=== PATIENT | female | born 1980 | race American Indian/Alaskan Native ===

== ENCOUNTER 2016-07-05 13:52 | Emergency (ER) | payer OTHER ==
[2016-07-05 14:39] LABS: Basophils % (Auto) 0.6 % (0.0-1.8); Eosinophils % (Auto) 0.5 % (0.0-4.3); Hematocrit 38.8 % (30.3-42.9); Hemoglobin 13.1 gm/dl (10.1-14.3); Mean Corpuscular HGB Conc 34 % (30-34); Mean Corpuscular Hemoglobin 32 pg (28-32); Mean Corpuscular Volume 94 fl (79-97); Platelet Count 357 K/mm3 (140-440); Red Blood Count 4.11 M/mm3 (3.65-5.03); Red Cell Distribution Width 12.8 % (13.2-15.2)
[2016-07-05 14:53] LABS: Alanine Aminotransferase 8 units/L (7-56); Albumin 4.4 g/dL (3.9-5); Alkaline Phosphatase 71 units/L (35-129); Chloride 98.9 mmol/L (98-107); Glucose 104 mg/dL (65-100); Potassium 3.7 mmol/L (3.6-5.0); Sodium 138 mmol/L (137-145)
[2016-07-05 15:01] LABS: Albumin/Globulin Ratio 1.4 %; Anion Gap 20 mmol/L; BUN/Creatinine Ratio 18.33; Blood Urea Nitrogen 11 mg/dL (7-17); Calcium 9.5 mg/dL (8.4-10.2); Carbon Dioxide 23 mmol/L (22-30); Lipase 22 units/L (13-60); Total Protein 7.5 g/dL (6.3-8.2)
[2016-07-05 15:56] LABS: Bilirubin,Urine NEG (Negative); Blood,Urine LG (Negative); Ketones,Urine NEG (Negative); Leukocyte Esterase,Urine SM (Negative); Mucus,Urine FEW /HPF; Nitrite,Urine NEG (Negative); Protein,Urine <15 mg/dL mg/dL (Negative); Urobilinogen,Urine < 2.0 mg/dL (<2.0)
--- NOTE | 2016-07-05 23:42 | Ultrasound Report ---
FINAL REPORT PROCEDURE: US TRANSVAGINAL TECHNIQUE: Real-time transvaginal sonography in multiple planes of the pelvis was performed with image documentation. This examination was performed without Doppler. Vascular abnormalities, including ovarian torsion, will not be detectable without Doppler evaluation. CPT 82307 HISTORY: pelvic pain and bleeding COMPARISON: No prior studies are available for comparison. FINDINGS: The pelvic contents including uterus are not well delineated. There appears to be a large mass located in the left adnexal region measuring 7.6 x 3.9 x 5.6 centimeters. There is a mixed echoic mass in the central pelvis measuring 3 centimeters x 2.4 centimeters x 3.4 centimeters containing septations. IMPRESSION: Uterus and ovaries are not clearly delineated. There appear to be ill-defined mass lesions in the central pelvis and left adnexal region. CT or MRI are recommended for further evaluation.
--- NOTE | 2016-07-06 00:27 | Ultrasound Report ---
FINAL REPORT PROCEDURE: US PELVIC COMPLETE TECHNIQUE: Real-time transabdominal sonography in multiple planes of pelvis was performed with image documentation. This examination was performed without Doppler. Vascular abnormalities, including ovarian torsion, will not be detectable without Doppler evaluation. CPT 53478 HISTORY: pelvic pain and bleeding COMPARISON: No prior studies are available for comparison. FINDINGS: Pelvic contents are not well visualized on this study. There is a large mass identified in the lower left pelvis this is most likely a left adnexal masses measures up to 7.6 centimeters. This has mixed echogenicity. There is a septated cystic region in the central pelvis that measures 3 x 2.4 x 3.4 centimeters. Advanced cross-sectional imaging should be entertained for further differentiation of the pelvic structures. IMPRESSION: Poor visualization of the pelvic structures on this study. A large mass in the left pelvis which may represent ovarian mass or adnexal mass measures up to 7.6 centimeters. 2nd septated cystic region in the mid lower pelvis measures up to 3.4 centimeters. Further differentiation with advanced cross-sectional imaging utilizing CT or MRI would be of benefit.
--- NOTE | 2016-07-06 04:55 | Emergency Department Report ---
<SHERRILL DOWLING IKuldip - Last Filed: 07/06/16 05:49> ED Abdominal Pain HPI - General Chief Complaint: Abdominal Pain Stated Complaint: PAIN LOWER STOMACH/EMESIS/BLEEDING Time Seen by Provider: 07/06/16 04:44 Source: patient Mode of arrival: Ambulatory Limitations: No Limitations - History of Present Illness Initial Comments: Patient is a 35-year-old female with a h/o DM presenting with left lower quadrant pelvic pain for the last 3 days. Patient reports she awoke Sunday morning with some pelvic pain, sharp and constant in nature with radiation across her lower back. Patient then reports she started having vaginal bleeding the following day. She reports this is unusual because the patient had a right oophorectomy and partial hysterectomy 14 years ago and has not had a period in 14 years. Patient try Tylenol [id number] with minor relief. Otherwise no fevers, chills, nausea, vomiting, diarrhea, chest pain, shortness of breath, trauma, recent surgery, travel, or sick contacts. - Related Data Previous Rx's Medication Instructions Recorded Last Taken Type Doxycycline [Vibramycin CAP] 100 mg PO Q12HR #20 capsule 07/06/16 Unknown Rx HYDROcodone/APAP 5-325 [[place] 1 each PO Q4HR PRN #14 tablet 07/06/16 Unknown Rx 5/325] Allergies Allergy/AdvReac Type Severity Reaction Status Date / Time No Known Allergies Allergy Verified 04/21/15 16:44 ED Review of Systems ROS: Stated complaint: PAIN LOWER STOMACH/EMESIS/BLEEDING Other details as noted in HPI Comment: All other systems reviewed and negative ED Past Medical Hx - Past Medical History Previous Medical History?: Yes Hx Diabetes: Yes (Type II) Additional medical history: cyst on R ovary s/p oophorectomy and partial hysterectomy. Uterine fibroids - Surgical History Additional Surgical History: Left oophorectomy, Tubaligation - Social History Smoking Status: Current Every Day Smoker Substance Use Type: Alcohol - Medications Home Medications: Home Medications Medication Instructions Recorded Confirmed Last Taken Type Doxycycline [Vibramycin CAP] 100 mg PO Q12HR #20 capsule 07/06/16 Unknown Rx HYDROcodone/APAP 5-325 [[place] 1 each PO Q4HR PRN #14 tablet 07/06/16 Unknown Rx 5/325] ED Physical Exam - General Limitations: No Limitations ED Course Vital Signs 07/05/16 07/06/16 07/06/16 14:07 06:41 06:42 Temperature 98.4 F Pulse Rate 91 H 84 Respiratory 20 18 18 Rate Blood Pressure 130/92 Blood Pressure 126/84 [Right] O2 Sat by Pulse 100 100 100 Oximetry ED Medical Decision Making - Lab Data Result diagrams: 07/05/16 14:24 07/05/16 14:24 - Radiology Data Radiology results: report reviewed Pelvic US: Poor visualization of the pelvic structures on this study. A large mass in the left pelvis which may represent ovarian mass or adnexal mass measures up to 7.6 cm. Second septated cystic region in the mid lower pelvis measures up to 3.4 cm. Further differentiation with advanced cross sectional imaging utilizing CT or MRI would be of benefit. - Medical Decision Making Results discussed with the patient. Pelvic us was done without doppler, will resend for pelvic and transvaginal us for doppler imaging Critical care attestation.: If time is entered above; I have spent that time in minutes in the direct care of this critically ill patient, excluding procedure time. ED Disposition Clinical Impression: Adnexal mass Abdominal pain Qualifiers: Abdominal location: left lower quadrant Qualified Code(s): R10.32 - Left lower quadrant pain UTI (urinary tract infection) Qualifiers: Urinary tract infection type: site unspecified Hematuria presence: with hematuria Qualified Code(s): N39.0 - Urinary tract infection, site not specified ; R31.9 - Hematuria, unspecified Disposition: DISCHARGED TO HOME OR SELFCARE Condition: Stable Instructions: Abdominal Pain (ED), Urinary Tract Infection in Women (ED), Ovarian Cyst (ED) Additional Instructions: Further evaluation with a parimutuel ticket seller is required. Return to the emergency department should you have increasing pain, any fever or chills or any acute change or problem. See referral information. Rx as directed. Prescriptions: Doxycycline [Vibramycin CAP] 100 mg PO Q12HR #20 capsule HYDROcodone/APAP 5-325 [[place] 5/325] 1 each PO Q4HR PRN #14 tablet PRN Reason: Pain Referrals: PRIMARY CARE, [Primary Care Provider] - 3-5 Days DARIO BANSAL MD [Staff Physician] - 2-3 Days <ANTOLIN LEWIS - Last Filed: 07/06/16 08:11> ED Abdominal Pain HPI - History of Present Illness Initial Comments: The patient informs me that she has had left lower quadrant pain for the last several days. He has had some spotting but no vaginal discharge. She denies fever or chills. She's been recently told she has ovarian cysts but not a large mass. She has no parimutuel ticket seller. ED Physical Exam - General General appearance: alert, in no apparent distress - Head Head exam: Present: atraumatic, normocephalic - Eye Eye exam: Present: normal appearance. Absent: scleral icterus - ENT ENT exam: Present: mucous membranes moist - Neck Neck exam: Present: normal inspection - Respiratory Respiratory exam: Present: normal lung sounds bilaterally. Absent: respiratory distress - Cardiovascular Cardiovascular Exam: Present: regular rate, normal rhythm. Absent: systolic murmur, diastolic murmur, rubs, gallop - GI/Abdominal GI/Abdominal exam: Present: soft, distended, tenderness (there is some discomfort to palpation in the left lower quadrant no peritoneal signs), normal bowel sounds. Absent: guarding, rebound, rigid - Extremities Exam Extremities exam: Present: normal inspection - Back Exam Back exam: Present: normal inspection. Absent: CVA tenderness (R), CVA tenderness (L) - Neurological Exam Neurological exam: Present: alert, oriented X3, CN II-XII intact. Absent: motor sensory deficit - Psychiatric Psychiatric exam: Present: normal affect, normal mood - Skin Skin exam: Present: warm, dry, intact, normal color. Absent: rash ED Course - Reevaluation(s) Reevaluation #1: Ultrasound report is noted. I will discuss follow-up with parimutuel ticket seller. Outpatient disposition is expected. We'll culture urine and begin antibiotic coverage. 07/06/16 07:56 Reevaluation #2: Discussed with Dr. Penelope Bansal. She agrees and confirms the plan for IV ceftriaxone now followed by doxycycline. She will see the patient in her office. 07/06/16 08:06 Reevaluation #3: Ultrasound report was reviewed with TELEPHONE MESSENGER. 07/06/16 08:09 ED Medical Decision Making - Lab Data Result diagrams: 07/05/16 14:24 07/05/16 14:24 ED Disposition Is pt being admited?: No Does the pt Need Aspirin: No Time of Disposition: 08:09
[2016-07-06] MEDS ORDERED: MORPHINE IV ONE (04:58)
[2016-07-06] MEDS ORDERED: NACL 0.9% 1000 ML 1,000 ML IV ONE (04:58)
[2016-07-06] MEDS ORDERED: ZOFRAN IV ONE (04:58)
[2016-07-06] MEDS ORDERED: NACL ONE (04:59)
--- NOTE | 2016-07-06 06:23 | Ultrasound Report ---
FINAL REPORT PROCEDURE: US TRANSVAGINAL TECHNIQUE: Real-time transabdominal sonography in multiple planes of the pelvis was performed. The pelvic structures were not optimally visualized. Transvaginal sonography was then performed to better evaluate the structures and/or abnormalities described below with image documentation. Grayscale, color flow Doppler imaging and velocity spectral waveform analysis of the ovaries was employed (duplex imaging). CPT 53017, 06347, and 16881 HISTORY: r/o torsion COMPARISON: 07/05/2016 FINDINGS: Since the prior study there remains a large mass in the lower pelvis. This appears to represent a left adnexal mass. This measures 6.8 x 5.7 x 3.8 centimeters. There is some blood flow observed to this region. There are 2 complex structures identified within the mass. These have septations. One measures 2.8 x 2.3 x 1.9 centimeters. 2nd area measures 2.1 x 1.3 x 2 centimeters. The findings may indicate a new enlarged uterus with fibroids within the uterus. This could also represent a left adnexal/ovary mass with cystic septated regions. Fascial planes are not well determined on this study. Further evaluation with MRI may be appropriate. No free fluid identified in the lower pelvis. IMPRESSION: Masses are identified in the pelvis. Appropriate blood flow is detected within these areas. The fascia planes are not well determine on this examination. Further evaluation of the pelvic structures with MRI may be appropriate.
--- NOTE | 2016-07-06 06:24 | Ultrasound Report ---
FINAL REPORT PROCEDURE: US TRANSVAGINAL TECHNIQUE: Real-time transabdominal sonography in multiple planes of the pelvis was performed. The pelvic structures were not optimally visualized. Transvaginal sonography was then performed to better evaluate the structures and/or abnormalities described below with image documentation. Grayscale, color flow Doppler imaging and velocity spectral waveform analysis of the ovaries was employed (duplex imaging). CPT 67917, 51743, and 47716 HISTORY: r/o torsion COMPARISON: 07/05/2016 FINDINGS: Since the prior study there remains a large mass in the lower pelvis. This appears to represent a left adnexal mass. This measures 6.8 x 5.7 x 3.8 centimeters. There is some blood flow observed to this region. There are 2 complex structures identified within the mass. These have septations. One measures 2.8 x 2.3 x 1.9 centimeters. 2nd area measures 2.1 x 1.3 x 2 centimeters. The findings may indicate a new enlarged uterus with fibroids within the uterus. This could also represent a left adnexal/ovary mass with cystic septated regions. Fascial planes are not well determined on this study. Further evaluation with MRI may be appropriate. No free fluid identified in the lower pelvis. IMPRESSION: Masses are identified in the pelvis. Appropriate blood flow is detected within these areas. The fascia planes are not well determine on this examination. Further evaluation of the pelvic structures with MRI may be appropriate.
[2016-07-06 06:42] VITALS: BP 126/84
[2016-07-06] MEDS ORDERED: TORADOL IV ONE (07:57)
[2016-07-06] MEDS ORDERED: ROCEPHIN/NS 1 GM/50 ML 1 GM/50 ML BAG IV ONE (07:57)
== END 2016-07-06 09:45 | disposition home or self-care (01) ==
LOC: ED 13:52
DX: R19.09 Other intra-abdominal and pelvic swelling, mass and lump (principal); N39.0 Urinary tract infection, site not specified
CPT/HCPCS: 36415; 76830; 76856; 80053; 81001; 81025; 83690; 85025; 87086; 93975; 96361; 96365; 96375; 99284; J0696; J1885; J2270; J2405; J7030

== ENCOUNTER 2016-11-09 11:43 | Emergency (ER) | payer SELFPAY ==
[2016-11-09 12:21] VITALS: BP 129/101
[2016-11-09] MEDS ORDERED: ZOFRAN ODT PO ONE (12:22)
[2016-11-09 12:53] LABS: Bilirubin,Urine NEG (Negative); Blood,Urine MOD (Negative); Ketones,Urine NEG (Negative); Leukocyte Esterase,Urine NEG (Negative); Nitrite,Urine NEG (Negative); Protein,Urine <15 mg/dL mg/dL (Negative); Urobilinogen,Urine < 2.0 mg/dL (<2.0)
[2016-11-09 13:07] LABS: Basophils % (Auto) 0.8 % (0.0-1.8); Eosinophils % (Auto) 0.7 % (0.0-4.3); Hematocrit 38.3 % (30.3-42.9); Hemoglobin 12.6 gm/dl (10.1-14.3); Mean Corpuscular HGB Conc 33 % (30-34); Mean Corpuscular Hemoglobin 31 pg (28-32); Mean Corpuscular Volume 94 fl (79-97); Platelet Count 388 K/mm3 (140-440); Red Cell Distribution Width 13.5 % (13.2-15.2); White Blood Count 10.2 K/mm3 (4.5-11.0)
[2016-11-09 13:23] LABS: Alanine Aminotransferase 7 units/L (7-56); Albumin 4.2 g/dL (3.9-5); Albumin/Globulin Ratio 1.4 %; Alkaline Phosphatase 67 units/L (35-129); Anion Gap 17 mmol/L; Blood Urea Nitrogen 12 mg/dL (7-17); Calcium 9.2 mg/dL (8.4-10.2); Carbon Dioxide 23 mmol/L (22-30); Glucose 78 mg/dL (65-100); Lipase 18 units/L (13-60); Potassium 3.2 mmol/L (3.6-5.0); Sodium 141 mmol/L (137-145); Total Protein 7.2 g/dL (6.3-8.2)
--- NOTE | 2016-11-09 13:51 | Ultrasound Report ---
Pelvic and transvaginal sonography: History: Left lower quadrant pain. Findings: Patient is status post hysterectomy. Right ovary surgically removed. Left ovary measures 5.1 x 2.8 x 5.8 cm. Cyst in the left ovary measures 2.5 cm. Complex cystic/solid mass measures 1.4 x 1.1 cm. Minimal fluid in the posterior cul-de-sac. Impression: Findings as detailed above.
[2016-11-09] MEDS ORDERED: NORCO 10/325 PO ONE (14:30)
[2016-11-09] MEDS ORDERED: NORCO 10/325 ONE (14:34)
[2016-11-09] MEDS ORDERED: TORADOL IM ONE (20:18)
--- NOTE | 2016-11-09 20:22 | Emergency Department Report ---
ED Abdominal Pain HPI - General Chief Complaint: Abdominal Pain Stated Complaint: ABDOMINAL PAIN, DIZZY, VOMITING, CYST ON LEFT OVAR Time Seen by Provider: 11/09/16 20:13 Source: patient Mode of arrival: Wheelchair Limitations: No Limitations - History of Present Illness Initial Comments: Patient is 36 years old female coming today was left lower quadrant abdominal pain and it has been ongoing since June 2106 and also patient was diagnosed with ovarian cyst she did not have any follow-up with her primary care physician or digital sales manager. Pain is sharp in nature does not radiate. Denied any fever no nausea no vomiting no dysuria or frequency no vaginal discharge or bleeding. MD Complaint: abdominal pain -: Gradual Location: LLQ Radiation: none Migration to: no migration Severity scale (0 -10): 10 Quality: sharp Associated Symptoms: denies: nausea, vomiting, diarrhea, fever, chills, dysuria , hematemesis, hematochezia, melena, hematuria, anorexia - Related Data Previous Rx's Medication Instructions Recorded Last Taken Type Doxycycline [Vibramycin CAP] 100 mg PO Q12HR #20 capsule 07/06/16 Unknown Rx HYDROcodone/APAP 5-325 [[place] 1 each PO Q4HR PRN #14 tablet 07/06/16 Unknown Rx 5/325] HYDROcodone/APAP 5-325 [[place] 1 each PO Q6HR PRN #14 tablet 11/09/16 Unknown Rx 5/325] Naproxen [Naprosyn] 500 mg PO BID #14 tablet 11/09/16 Unknown Rx Ondansetron [Zofran Odt] 4 mg PO Q8HR PRN #14 tab.rapdis 11/09/16 Unknown Rx Allergies Allergy/AdvReac Type Severity Reaction Status Date / Time No Known Allergies Allergy Verified 04/21/15 16:44 ED Review of Systems ROS: Stated complaint: ABDOMINAL PAIN, DIZZY, VOMITING, CYST ON LEFT OVAR Other details as noted in HPI Comment: All other systems reviewed and negative Constitutional: denies: chills, fever Respiratory: denies: cough Cardiovascular: denies: chest pain, palpitations Gastrointestinal: abdominal pain. denies: nausea, vomiting, diarrhea, constipation, hematemesis, hematochezia Skin: denies: rash, lesions Neurological: denies: headache, weakness ED Past Medical Hx - Past Medical History Hx Diabetes: Yes (Type II) Additional medical history: cyst on R ovary s/p oophorectomy and partial hysterectomy. Uterine fibroids - Surgical History Past Surgical History?: Yes Additional Surgical History: Left oophorectomy, Tubaligation - Social History Smoking Status: Current Every Day Smoker Substance Use Type: None - Medications Home Medications: Home Medications Medication Instructions Recorded Confirmed Last Taken Type Doxycycline [Vibramycin CAP] 100 mg PO Q12HR #20 capsule 07/06/16 Unknown Rx HYDROcodone/APAP 5-325 [[place] 1 each PO Q4HR PRN #14 tablet 07/06/16 Unknown Rx 5/325] HYDROcodone/APAP 5-325 [[place] 1 each PO Q6HR PRN #14 tablet 11/09/16 Unknown Rx 5/325] Naproxen [Naprosyn] 500 mg PO BID #14 tablet 11/09/16 Unknown Rx Ondansetron [Zofran Odt] 4 mg PO Q8HR PRN #14 tab.rapdis 11/09/16 Unknown Rx ED Physical Exam - General Limitations: No Limitations General appearance: alert, in no apparent distress - Eye Eye exam: Present: normal appearance - ENT ENT exam: Present: normal exam - Neck Neck exam: Present: normal inspection. Absent: meningismus - Respiratory Respiratory exam: Present: normal lung sounds bilaterally. Absent: respiratory distress, wheezes, rales, rhonchi, decreased breath sounds, prolonged expiratory - Cardiovascular Cardiovascular Exam: Present: regular rate, normal rhythm, normal heart sounds - GI/Abdominal GI/Abdominal exam: Present: soft, tenderness (left lower quadrant). Absent: distended, guarding, rebound, rigid, mass, bruit, pulsatile mass, hernia - Back Exam Back exam: Present: normal inspection. Absent: CVA tenderness (R), CVA tenderness (L) - Neurological Exam Neurological exam: Present: alert, oriented X3, CN II-XII intact - Skin Skin exam: Present: warm, intact, normal color ED Course Vital Signs 11/09/16 12:18 Temperature 98.6 F Pulse Rate 72 Blood Pressure 129/101 O2 Sat by Pulse 100 Oximetry ED Medical Decision Making - Lab Data Result diagrams: 11/09/16 12:39 11/09/16 12:39 - Radiology Data Radiology results: report reviewed Ultrasound pelvic showed 2.5 cm ovarian cyst no other acute abnormality. - Medical Decision Making Patient labs reviewed but she did not show any acute abnormality. Advised patient to follow up with her digital sales manager in the next 2-3 days. I also advised patient to return to the ER if her symptom is not improving. Critical care attestation.: If time is entered above; I have spent that time in minutes in the direct care of this critically ill patient, excluding procedure time. ED Disposition Clinical Impression: Abdominal pain, Ovarian cyst Disposition: TO HOME OR SELFCARE Is pt being admited?: No Condition: Stable Instructions: Ovarian Cyst (ED), Abdominal Pain (ED) Prescriptions: HYDROcodone/APAP 5-325 [[place] 5/325] 1 each PO Q6HR PRN #14 tablet PRN Reason: Pain Naproxen [Naprosyn] 500 mg PO BID #14 tablet Ondansetron [Zofran Odt] 4 mg PO Q8HR PRN #14 tab.rapdis PRN Reason: Nausea And Vomiting Referrals: PRIMARY CARE, [Primary Care Provider] - 3-5 Days Forms: Work/School Release Form(ED)
== END 2016-11-09 20:35 | disposition home or self-care (01) ==
LOC: ED 11:43
DX: N83.292 Other ovarian cyst, left side (principal); R10.32 Left lower quadrant pain; E11.9 Type 2 diabetes mellitus without complications; Z90.721 Acquired absence of ovaries, unilateral; F17.200 Nicotine dependence, unspecified, uncomplicated; Z98.51 Tubal ligation status
CPT/HCPCS: 36415; 76830; 76856; 80053; 81001; 83690; 85025; 96372; 99284; J1885; Q0162